=== PATIENT | female | born 1935 | race Caucasian/White ===

== ENCOUNTER → 2017-07-03 | Outpatient (CLI) | payer OTHER ==
--- NOTE | 2017-07-03 13:12 | RAD ---
EXAM DESCRIPTION: Ankle,Right 3 Views CLINICAL HISTORY: ANKLE PAIN COMPARISON: None FINDINGS: 3 views of the right ankle. Acute horizontally oriented fracture of the distal fibula just below the level of the tibial plafond and is present. No significant displacement. No other acute ankle fractures are present. Ankle mortise is symmetric. Decreased bone mineralization suggesting osteopenia or osteoporosis. Old deformity of the midfoot is seen likely degenerative. IMPRESSION: Acute distal fibular fracture. Electronically signed by: Solomon Middleton MD 07/03/2017 1:11 PM [facility]
== END | disposition home or self-care (01) ==
LOC: RAD 08:21
PROVIDERS: ATTEND Orthopaedic Surgery
DX: M25.571 Pain in right ankle and joints of right foot (principal)

== ENCOUNTER → 2017-07-18 | Outpatient (CLI) | payer OTHER ==
--- NOTE | 2017-07-18 20:41 | RAD ---
EXAM DESCRIPTION: Right ankle, 3 views CLINICAL HISTORY: CLOSED FRACTURE OF DISTAL FIBULA FINDINGS/ IMPRESSION: Comparison 07/03/2017 Fracture of the distal fibula below the level of the ankle joint involving the epiphysis. This was seen on the previous study. Fracture line is more clearly delineated. Minimal comminution along the lateral cortex. No significant displacement No diagnostic tibial fracture. Ankle mortise is symmetric Soft tissue swelling and edema No tarsal fracture Large well-corticated plantar calcaneal spur. Midfoot osteoarthritis second tarsometatarsal Electronically signed by: Uche Rubin MD 07/18/2017 5:27 PM [facility]
== END | disposition home or self-care (01) ==
LOC: RAD 10:06
PROVIDERS: ATTEND Orthopaedic Surgery
DX: S82.821D Torus fracture of lower end of right fibula, subsequent encounter for fracture with routine healing (principal)

== ENCOUNTER → 2017-08-07 | Outpatient (CLI) | payer OTHER ==
--- NOTE | 2017-08-07 11:54 | RAD ---
EXAM DESCRIPTION: Ankle,Right 3 Views CLINICAL HISTORY: CLOSED FRACTURE OF DISTAL FIBULA COMPARISON: 18 July 2017 TECHNIQUE: 3 views right FINDINGS: Osteopenia is observed. Callus formation is observed at the previously detected fracture of the distal fibula. The injury is nondisplaced. 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 A plantar calcaneal spur is noted. IMPRESSION: Healing fracture of the distal right fibula. Electronically signed by: Missael Torres MD 08/07/2017 11:53 AM [facility]
== END | disposition home or self-care (01) ==
LOC: RAD 09:13
PROVIDERS: ATTEND Orthopaedic Surgery
DX: S82.821 Torus fracture of lower end of right fibula (principal)